=== PATIENT | female | born 2000 | race Two or more races ===

== ENCOUNTER 2025-04-26 11:03 | Emergency (ER) | payer OTHER ==
[~2025-04-26] VITALS: Ht 162.6 cm; Wt 94.0 kg
[2025-04-26] MEDS ORDERED: MULTTAB20 PO (11:09)
[2025-04-26 12:18] LABS: SP GRAVITY,URINE MANUAL REFLEX 1.015 (1.002-1.035)
[2025-04-26 12:19] LABS: KETONE, URINE MANUAL REFLEX 3+ mg/dL (NEGATIVE); NITRITE, URINE MANUAL RFX NEGATIVE (NEGATIVE); PROTEIN, URINE MANUAL REFLEX NEGATIVE (NEGATIVE); UROBILINOGEN, UA MANUAL REFLEX NORMAL (NORMAL)
[2025-04-26 12:27] LABS: WBC, URINE MAN RFX 0-1 /hpf (0-3)
[2025-04-26 12:28] LABS: HYALINE CAST, URINE RFX NONE SEEN /lpf (0-1); MICROSCOPIC EXAM RFX PERFORMED; RBC, URINE MAN REFLEX 0-1 /hpf (0-3); SQUAMOUS EPITHELIAL URINE RFX SMALL AMOUNT /hpf (SMALL AMT)
[2025-04-26 13:07] LABS: BASO # 0.1 10^3/uL (0.0-0.2); BASO % 0.6 % (0.0-1.0); EOS # 0.1 10^3/uL (0.0-0.5); EOS % 0.6 % (0.0-3.0); LYMPH # 2.1 10^3/uL (1.5-5.0); LYMPH % 25.9 % (24.0-44.0); MONO # 0.4 10^3/uL (0.0-0.8); MONO % 4.9 % (2.0-8.0); NEUTROPHILS # 5.4 10^3/uL (1.5-8.5); NEUTROPHILS % 67.6 % (36.0-66.0); PLATELET COUNT, AUTOMATED 276 10^3/uL (150-450)
[2025-04-26 13:17] LABS: CALCIUM LEVEL 9.2 MG/DL (8.5-10.1); CARBON DIOXIDE LEVEL 24 MMOL/L (20-31); CHLORIDE LEVEL 103 MMOL/L (98-107); CREATININE FOR GFR 0.72 MG/DL (0.55-1.30); GLOMERULAR FILTRATION RATE > 90.0 (>60); POTASSIUM SERUM 3.9 MMOL/L (3.5-5.1); SODIUM LEVEL 140 MMOL/L (136-145)
[2025-04-26 13:51] LABS: Trichomonas vaginalis (AMP) NOT DETECTED (NEGATIVE)
[2025-04-26 14:05] VITALS: BP 105/63; TEMP 99; O2SAT 99
[2025-04-26 14:14] LABS: GC DNA AMPLIFICATION NEGATIVE (NEGATIVE)
[2025-04-26 14:44] LABS: HCG, SERUM QUANTITATIVE 154184.0 MIU/ML (<4.2)
[2025-04-26] MEDS ORDERED: CLIN2CRE PV (16:18)
== END 2025-04-26 16:38 | disposition home or self-care (01) ==
LOC: M ED 11:03
DX: O20.0 Threatened abortion (principal); O23.591 Infection of other part of genital tract in pregnancy, first trimester; D64.9 Anemia, unspecified; Z88.0 Allergy status to penicillin; Z79.2 Long term (current) use of antibiotics; Z79.899 Other long term (current) drug therapy; Z3A.01 Less than 8 weeks gestation of pregnancy

== ENCOUNTER → 2025-05-18 | Outpatient (CLI) | payer OTHER ==
[~2025-05-18] MED LIST: CLIN2CRE PV; MULTTAB20 PO
[2025-05-18 11:26] LABS: PLATELET COUNT, AUTOMATED 240 10^3/uL (150-450)
[2025-05-18 12:14] LABS: HIV 1&2 SCREEN NEGATIVE (NEGATIVE)
[2025-05-18 12:23] LABS: HEPATITIS C VIRUS ABY INDEX 0.02 INDEX (<0.8)
[2025-05-18 13:00] LABS: Trichomonas vaginalis (AMP) NOT DETECTED (NEGATIVE)
[2025-05-18 13:24] LABS: GC DNA AMPLIFICATION NEGATIVE (NEGATIVE)
== END ==
LOC: M PLALAB 07:12
PROVIDERS: ATTEND Nurse Practitioner Family
DX: Z34.80 Encounter for supervision of other normal pregnancy, unspecified trimester (principal)

== ENCOUNTER 2025-06-09 10:02 | Emergency (ER) | payer OTHER ==
[~2025-06-09] VITALS: Ht 162.6 cm; Wt 90.9 kg
[2025-06-09 11:38] LABS: BASO # 0.0 10^3/uL (0.0-0.2); BASO % 0.2 % (0.0-1.0); EOS # 0.0 10^3/uL (0.0-0.5); EOS % 0.0 % (0.0-3.0); LYMPH # 0.2 10^3/uL (1.5-5.0); LYMPH % 3.8 % (24.0-44.0); MONO # 0.3 10^3/uL (0.0-0.8); MONO % 5.4 % (2.0-8.0); NEUTROPHILS # 5.6 10^3/uL (1.5-8.5); NEUTROPHILS % 90.1 % (36.0-66.0); PLATELET COUNT, AUTOMATED 173 10^3/uL (150-450)
[2025-06-09 12:02] LABS: ALT/SGPT 14 U/L (7.0-40); AST/SGOT 16 U/L (<34); CALCIUM LEVEL 8.7 MG/DL (8.5-10.1); CARBON DIOXIDE LEVEL 23 MMOL/L (20-31); CHLORIDE LEVEL 102 MMOL/L (98-107); CREATININE FOR GFR 0.63 MG/DL (0.55-1.30); GLOMERULAR FILTRATION RATE > 90.0 (>60); POTASSIUM SERUM 3.5 MMOL/L (3.5-5.1); SODIUM LEVEL 136 MMOL/L (136-145)
[2025-06-09 12:02] LABS: KETONE, URINE AUTO RFX 1+ mg/dL (NEGATIVE); LEUKOCYTE ESTERASE UR AUTO RFX NEGATIVE (NEGATIVE); MUCUS, URINE RFX LARGE (NEGATIVE); NITRITE, URINE AUTO RFX NEGATIVE (NEGATIVE); RBC, URINE AUTO RFX 0 /HPF (0-3); SQUAM EPITHELIAL CELL UR AURFX 2 /HPF (0-6); WBC, URINE AUTO RFX 1 /HPF (0-3)
[2025-06-09] MEDS: NS (Normal Saline) 0.9% 1,000 ML IV ONE (12:50)
[2025-06-09] MEDS: ACETAMINOPHEN *IV* 1,000 MG in IV 1 EA IV ONE (13:19)
[2025-06-09 14:46] VITALS: BP 91/53; TEMP 98.5; O2SAT 96
[2025-06-09] MEDS ORDERED: REGL10TA6 PO (15:16)
== END 2025-06-09 15:47 | disposition home or self-care (01) ==
LOC: M ED 12:31
DX: O98.511 Other viral diseases complicating pregnancy, first trimester (principal); U07.1 COVID-19; D64.9 Anemia, unspecified; Z88.0 Allergy status to penicillin; Z79.899 Other long term (current) drug therapy; Z3A.14 14 weeks gestation of pregnancy
CPT/HCPCS: 80048; 80076; 81001; 83690; 85025; 87486; 87581; 87633; 87798; 96361; 96365; 96375; 99284; J0131; J2765

== ENCOUNTER → 2025-07-14 | Outpatient (CLI) | payer OTHER ==
[~2025-07-14] MED LIST changes: +REGL10TA6 PO
== END ==
LOC: M WHC 06:41
PROVIDERS: ATTEND Nurse Practitioner Family
DX: Z34.82 Encounter for supervision of other normal pregnancy, second trimester (principal)

== ENCOUNTER 2025-09-02 10:09 | Outpatient (CLI) | payer OTHER ==
[~2025-09-02] VITALS: Ht 162.6 cm; Wt 97.5 kg
[2025-09-02 10:26] VITALS: BP 95/51
[2025-09-02] MEDS ORDERED: FERR325T81 PO (10:29)
[2025-09-02] MEDS ORDERED: VITA250T27 PO (10:29)
[2025-09-02] MEDS ORDERED: HOME MED LIST COMPLETE! XX SCH (10:30)
[2025-09-02 11:36] VITALS: BP 98/54
[2025-09-02 12:07] LABS: PLATELET COUNT, AUTOMATED 231 10^3/uL (150-450)
[2025-09-02 12:55] LABS: INR 1.03
[2025-09-02 13:05] VITALS: BP 108/65
== END 2025-09-02 14:27 | disposition home or self-care (01) ==
LOC: M LDO 10:09
PROVIDERS: ATTEND Advanced Practice Midwife
DX: Z04.1 Encounter for examination and observation following transport accident (principal); O26.892 Other specified pregnancy related conditions, second trimester; R10.817 Generalized abdominal tenderness; Z3A.26 26 weeks gestation of pregnancy; V43.62XA Car passenger injured in collision with other type car in traffic accident, initial encounter; Y92.9 Unspecified place or not applicable; Y93.9 Activity, unspecified; Y99.9 Unspecified external cause status
CPT/HCPCS: 36415; 59025; 76815; 85027; 85384; 85460; 85610; 85730; G0463

== ENCOUNTER → 2025-09-06 | Outpatient (CLI) | payer OTHER ==
[~2025-09-06] MED LIST changes: +FERR325T81 PO; +VITA250T27 PO
[2025-09-06 18:05] LABS: PLATELET COUNT, AUTOMATED 250 10^3/uL (150-450)
[2025-09-06 18:06] LABS: GLUCOSE CHALLENGE TEST 1 HOUR 68 MG/DL (LESS THAN 140)
[2025-09-06 18:36] LABS: HIV 1&2 SCREEN NEGATIVE (NEGATIVE)
[2025-09-06 18:43] LABS: HEPATITIS C VIRUS ABY INDEX 0.05 INDEX (<0.8)
[2025-09-06 19:00] LABS: Trichomonas vaginalis (AMP) NOT DETECTED (NEGATIVE)
[2025-09-06 19:23] LABS: GC DNA AMPLIFICATION NEGATIVE (NEGATIVE)
== END ==
LOC: M PLALAB 13:00
PROVIDERS: ATTEND Nurse Practitioner Family
DX: Z34.82 Encounter for supervision of other normal pregnancy, second trimester (principal)

== ENCOUNTER → 2025-09-07 | Outpatient (CLI) | payer OTHER | LOC: M WHC 14:46 | PROVIDERS: ATTEND Nurse Practitioner Family | DX: Z34.83 Encounter for supervision of other normal pregnancy, third trimester (principal); Z3A.27 27 weeks gestation of pregnancy ==